=== PATIENT | female | born 1975 | race Caucasian/White ===

== ENCOUNTER → 2020-01-10 13:12 | Outpatient (CLI) | payer BC, SELFPAY ==
--- NOTE | ~2020-01-10 | MM_ITS ---
EXAMINATION: MM screening [facility] BI w [facility] HISTORY: Screening mammogram TECHNIQUE: Craniocaudal and mediolateral oblique 3-D tomosynthesis images were obtained and synthetic 2-D images were generated. CAD analysis was submitted and interpreted. COMPARISON: 09/14/2018, 12/04/2014 BREAST PARENCHYMAL COMPOSITION: The breasts are heterogeneously dense, which may obscure small masses . FINDINGS: There is no evidence of suspicious mass, calcification, or architectural distortion to sugg est malignancy in either breast. There has been no suspicious interval change. IMPRESSION: 1. No mammographic evidence of malignancy. 2. Recommend routine screening mammography in one year. BI-RADS Category 1: Negative Reviewed, dictated and finalized at location A.
== END ==
PROVIDERS: PCP Family Medicine; Visit Provider Student in an Organized Health Care Education/Training Program
DX: Z12.31 Encounter for screening mammogram for malignant neoplasm of breast (principal)
CPT/HCPCS: 77063; 77067

== ENCOUNTER → 2021-02-09 12:22 | Outpatient (CLI) | payer BC, SELFPAY ==
--- NOTE | ~2021-02-09 | MM_ITS ---
EXAMINATION: MM screening [facility] BI w [facility] HISTORY: Screening mammogram TECHNIQUE: Craniocaudal and mediolateral oblique 3-D tomosynthesis images were obtained and synthetic 2-D images were generated. CAD analysis was submitted and interpreted. COMPARISON: 01/10/2020, 09/14/2018, 12/04/2014 BREAST PARENCHYMAL COMPOSITION: The breasts are heterogeneously dense, which may obscure small masses . FINDINGS: There is no evidence of suspicious mass, calcification, or architectural distortion to sugg est malignancy in either breast. There has been no suspicious interval change. IMPRESSION: 1. No mammographic evidence of malignancy. 2. Recommend routine screening mammography in one year. BI-RADS Category 1: Negative Reviewed, dictated and finalized at location A.
== END ==
PROVIDERS: Visit Provider Student in an Organized Health Care Education/Training Program
DX: Z12.31 Encounter for screening mammogram for malignant neoplasm of breast (principal)
CPT/HCPCS: 77063; 77067

== ENCOUNTER 2022-02-01 00:07 | Day surgery (SDC) | payer BC, SELFPAY ==
[2022-01-13 13:15] VITALS: BMI 29.1
[2022-02-01 08:17] VITALS: BP 124/61; PULSE 96; RESP 16; TEMP 36.5; O2SAT 98
[2022-02-01] MEDS: LACTATED RINGERS 1,000 ML 150 ML IV CONT (08:29)
--- NOTE | 2022-02-01 09:33 | P.PNAN_ITS ---
Anes - Initial Pre Proc Eval Procedure: Operation Date: 02/01/22 09:30 Proposed Procedures p Screening Colonoscopy - Royal Colon MD Date/Time: 02/01/22 09:33 Surgeon: Royal Colon MD Pre Op Diagnosis: neoplasm screening Patient Data Age: 46 Gender: F Height: 1.55 m Weight: 69 kg Last Vital Signs Temp 97.7 F 02/01/22 08:17 Pulse 96 02/01/22 08:17 Resp 16 02/01/22 08:17 BP 124/61 02/01/22 08:17 Pulse Ox 98 02/01/22 08:17 O2 Del Method Room Air 02/01/22 08:17 Allergies Allergy/AdvReac Type Severity Reaction Status Date / Time caffeine Allergy Unknown heart Verified 02/01/22 08:16 racing Home Medications Medication Instructions Recorded Confirmed Type levothyroxine 50 mcg tablet 50 mcg PO DAILY 06/21/19 02/01/22 History (Levoxyl) cholecalciferol (vitamin D3) 25 25 mcg PO DAILY 05/05/20 02/01/22 History mcg (1,000 unit) capsule citalopram 40 mg tablet (Celexa) 40 mg PO DAILY #30 tabs 07/15/21 02/01/22 Rx alprazolam 0.5 mg tablet 0.5 mg PO TID PRN anxiety #90 tabs 08/05/21 02/01/22 Rx peg 3350-electrolytes 236 240 ml PO Q10M #4,000 mL 12/23/21 02/01/22 Rx gram-22.74 gram-6.74 gram-5.86 gram solution (Golytely) Patient hx anesthesia problems: none Family hx anesthesia problems: none Results Review: All pre-operative results and documents have been reviewed as part of the pre- operative evaluation. [facility] Past Medical History Medical History Anxiety Hypothyroidism Surgical History Surgical History H/O partial thyroidectomy Family History Family History Grandparent Diabetes mellitus Hypertension Family history of coronary artery disease Father Hypertension Other Family history of genitourinary disease Social History Social History (Updated 08/05/21 @ 14:19 by Rosa Harvey [facility]) Smoking status: Never smoker Second hand tobacco smoke exposure: No Alcohol intake: current Alcohol use details: socially Substance use: never Substance use type: does not use Living arrangements: with family Spiritual care concerns: No Anes - Eval Final PreProcedure Day of Procedure 02/01/22 09:33 Patient weight: normal Heart: regular rate and rhythm Lungs: clear to auscultation Airway: Mallampati scale class II Neurological: alert and oriented Last oral intake: >/= 8 hours ASA classification: II Emergent: no Anesthetic plan: proceed Anesthesia type and monitoring: general GIVS and standard monitoring Results Review: All pre-operative results and documents have been reviewed as part of the pre- operative evaluation. Informed Consent: The patient's anesthetic plan and its attendant risks and benefits were discussed with the patient/family/POA. Questions were solicited and answers provided to the satisfaction of the patient/family/POA.
--- NOTE | 2022-02-01 10:05 | PM.HPGS ---
History of Present Illness History of Present Illness Consent: Risks, benefits, and alternatives have been discussed and questions answered. Patient agrees to proceed with procedure. Chief complaint: neoplasm screening Narrative: Ana Waldrop is a 46 year old female here for first screening colonoscopy Review of Systems Constitutional: Constitutional: Denies headache(s) and Denies weakness Eyes: Eyes: Denies blurry vision ENT: Reports Normal hearing present, Denies headache(s) and Denies neck pain Cardiovascular: Cardiovascular: Denies chest pain and Denies dyspnea Respiratory: Respiratory: Denies dyspnea Gastrointestinal: Gastrointestinal: Reports no additional gastrointestinal complaints Genitourinary: Genitourinary: Denies dysuria Musculoskeletal: Musculoskeletal: Denies neck pain Integumentary/Breasts: Skin/Breast: Denies dry skin Neurologic: Reports Normal hearing present, Denies headache(s) and Denies weakness Psychiatric: Psychiatric: Denies anxiety Endocrine: Endocrine: Denies change in body appearance Hematologic/Lymphatic: Hematologic/Lymphatic: Denies easy bleeding Allergic/Immunologic: Allergic/Immunologic: Denies urticaria PENDING SALE TO [facility] Past Medical History Medical History (Updated 02/01/22 @ 10:06 by Royal Colon MD) Anxiety Colon cancer screening Hypothyroidism Surgical History Surgical History H/O partial thyroidectomy Family History Family History Grandparent Diabetes mellitus Hypertension Family history of coronary artery disease Father Hypertension Other Family history of genitourinary disease Social History Social History (Updated 08/05/21 @ 14:19 by Rosa Harvey CMA) Smoking status: Never smoker Second hand tobacco smoke exposure: No Alcohol intake: current Alcohol use details: socially Substance use: never Substance use type: does not use Living arrangements: with family Spiritual care concerns: No Meds Home Medications and Allergies Home Medications Medication Instructions Recorded Confirmed Type levothyroxine 50 mcg tablet 50 mcg PO DAILY 06/21/19 02/01/22 History (Levoxyl) cholecalciferol (vitamin D3) 25 25 mcg PO DAILY 05/05/20 02/01/22 History mcg (1,000 unit) capsule citalopram 40 mg tablet (Celexa) 40 mg PO DAILY #30 tabs 07/15/21 02/01/22 Rx alprazolam 0.5 mg tablet 0.5 mg PO TID PRN anxiety #90 tabs 08/05/21 02/01/22 Rx peg 3350-electrolytes 236 240 ml PO Q10M #4,000 mL 12/23/21 02/01/22 Rx gram-22.74 gram-6.74 gram-5.86 gram solution (Golytely) Allergies Allergy/AdvReac Type Severity Reaction Status Date / Time caffeine Allergy Unknown heart Verified 02/01/22 08:16 racing Vital Signs Vital Signs - 24 hr 02/01/22 08:17 Temperature 97.7 F Pulse Rate 96 Respiratory Rate 16 Blood Pressure 124/61 Pulse Oximetry 98 Oxygen Delivery Room Air Exam Const: General: comfortable and no acute distress HENMT: General nose exam: Normal nares present Eyes: General: appearance normal, both eyes and all related structures Neck: Neck: no JVD Resp: Auscultation: clear to auscultation bilaterally Cardio: Rate: regular rate Rhythm: regular rhythm GI: Inspection: non-distended GI Palp: Yes Soft to palpation Skin: General skin exam: normal color Neuro: General: gait normal Speech: normal speech Extrem: General: normal to inspection Psych: Mental Status: mental status grossly normal Assessment and Plan Assessment and plan (1) Colon cancer screening: Code(s): Z12.11 - Encounter for screening for malignant neoplasm of colon Status: Acute Assessment and Plan: colonoscopy
[2022-02-01 10:22] VITALS: BP 91/51; PULSE 83; RESP 29; O2SAT 100
[2022-02-01 10:32] VITALS: BP 103/64; PULSE 67; RESP 19; O2SAT 100
[2022-02-01 10:42] VITALS: BP 112/70; PULSE 66; RESP 18; O2SAT 100
== END 2022-02-01 10:50 | disposition home or self-care (01) ==
PROVIDERS: PCP Physician Assistant; Visit Provider Internal Medicine Gastroenterology
PROC: 0DJD8ZZ Inspection of Lower Intestinal Tract, Via Natural or Artificial Opening Endoscopic (ICD-10-PCS; CPT 45378; principal; 2022-02-01 09:30)
DX: Z12.11 Encounter for screening for malignant neoplasm of colon (principal); K63.5 Polyp of colon; F41.9 Anxiety disorder, unspecified; E03.9 Hypothyroidism, unspecified
CPT/HCPCS: 45380; 88305; J2704; J7120

== ENCOUNTER → 2022-07-05 07:44 | Outpatient (CLI) | payer BC, SELFPAY ==
--- NOTE | ~2022-07-05 | US_ITS ---
EXAMINATION: US abdomen complete DATE: 07/05/2022 08:11 INDICATION: Unspecified abdominal pain TECHNIQUE: Multiple grayscale and Doppler ultrasound images of the abdomen were obtained. COMPARISON: None available FINDINGS: The head and body of the pancreas are normal. The pancreatic tail is obscured by bowel gas. The liver is normal with normal echogenicity and echotexture. No surface nodularity. Normal hepatope marino flow in the main portal vein. The gallbladder is normal with no abnormal wall thickening, pericho lecystic fluid or stones. The normal common bile duct measures 3 mm. There was no sonographic Oliver sign. The visualized portions of the aorta and inferior vena cava are normal. The spleen is normal in appearance and measures 8.6 cm. The right kidney measures 10.3 x 3.7 x 3.8 cm . The left kidney measures 9.7 x 4.6 x 5.2 cm. The kidneys demonstrate normal parenchymal echogenicit y. There is no hydronephrosis. IMPRESSION: 1. No sonographic correlate for the patient's symptoms. Reviewed, dictated and finalized at location L. WEB APPLICATION DEVELOPER
== END ==
PROVIDERS: PCP Family Medicine; Visit Provider Physician Assistant
DX: R10.9 Unspecified abdominal pain (principal)
CPT/HCPCS: 76700

== ENCOUNTER → 2022-09-01 12:39 | Outpatient (CLI) | payer BC, SELFPAY ==
--- NOTE | ~2022-09-01 | MM_ITS ---
EXAMINATION: MM screening [facility] BI w [facility] HISTORY: Screening mammogram TECHNIQUE: Craniocaudal and mediolateral oblique 3-D tomosynthesis images were obtained and synthetic 2-D images were generated. CAD analysis was submitted and interpreted. COMPARISON: 02/09/2021, 01/10/2020, 09/14/2018 BREAST PARENCHYMAL COMPOSITION: The breasts are heterogeneously dense, which may obscure small masses . FINDINGS: No suspicious mass, calcification, or architectural distortion are identified in either ray ast to suggest malignancy. There has been no suspicious interval change. IMPRESSION: 1. No mammographic evidence of malignancy. 2. Recommend routine screening mammography in one year. BI-RADS Category 1: Negative Reviewed, dictated and finalized at location A. L BONDING PRESS OPERATOR
== END ==
PROVIDERS: PCP Family Medicine; Visit Provider Student in an Organized Health Care Education/Training Program
DX: Z12.31 Encounter for screening mammogram for malignant neoplasm of breast (principal)
CPT/HCPCS: 77063; 77067

== ENCOUNTER 2023-10-24 12:30 | Outpatient (CLI) | payer BC, SELFPAY ==
--- NOTE | ~2023-10-24 | MM_ITS ---
EXAMINATION: MM screening [facility] BI w [facility] HISTORY: Screening mammogram TECHNIQUE: Craniocaudal and mediolateral oblique 3-D tomosynthesis images were obtained and synthetic 2-D images were generated. CAD analysis was submitted and interpreted. COMPARISON: 09/01/2022, 02/09/2021 bilateral screening mammogram examinations BREAST PARENCHYMAL COMPOSITION: The breasts are heterogeneously dense, which may obscure small masses . FINDINGS: There is no evidence of suspicious mass, calcification, or architectural distortion to sugg est malignancy in either breast. There has been no suspicious interval change. IMPRESSION: 1. No mammographic evidence of malignancy. 2. Recommend routine screening mammography in one year. BI-RADS Category 1: Negative Reviewed, dictated and finalized at location A.
== END 2023-10-24 12:31 ==
LOC: MICIMG 12:33
PROVIDERS: PCP Obstetrics & Gynecology; Visit Provider Obstetrics & Gynecology
DX: Z12.31 Encounter for screening mammogram for malignant neoplasm of breast (principal)
CPT/HCPCS: 77063; 77067